=== PATIENT | female | born 1970 | race Caucasian/White ===

== ENCOUNTER 2016-06-15 19:25 | Emergency (ER) | payer OTHER ==
[2016-06-15 22:24] LABS: BASOPHIL 0.2 % (0-2); EOSINOPHIL 0.7 % (0-5); HGB 17.4 g/dl (12.5-16.0); LYMPHOCYTE 6.4 % (15-48); MCH 29.4 pg (25.0-31.0); MCHC 34.1 g/dL (32.0-36.0); MCV 86.1 fL (78.0-100.0); MONOCYTE 2.9 % (0-12); MPV 11.1 fL (6.0-9.5); NEUTROPHIL 89.8 % (41-80); PLT 365 K/uL (150-400); RBC 5.92 M/uL (4.20-5.40); RDW 12.5 % (11.5-14.0)
[2016-06-15 22:26] LABS: BILIRUBIN NEGATIVE (NEGATIVE); BLOOD TRACE-INTACT Ery/uL (NEGATIVE); CLARITY SLIGHTLY HAZY (CLEAR); COLOR YELLOW (YELLOW); GLUCOSE (U) NORMAL (NORMAL); KETONE (U) NEGATIVE (NEGATIVE); LEUKOCYTES NEGATIVE Leu/uL (NEGATIVE); NITRITE NEGATIVE (NEGATIVE); PROTEIN NEGATIVE (NEGATIVE); SPECIFIC GRAVITY >=1.030 (1.001-1.030); UROBILINOGEN 0.2 mg/dL (0.2-1.0); pH 5.5 (5.0-9.0)
[2016-06-15 22:28] LABS: INR 0.9 (0.9-1.2); PROTHROMBIN TIME 11.8 SECONDS (11.7-14.0); PTT 27.6 SECONDS (23.2-31.4)
[2016-06-15 22:32] LABS: BACTERIA 1+; CALCIUM OXALATE CRYSTALS TRACE; MUCOUS TRACE; SQUAMOUS EPITHELIAL CELLS 20-50
[2016-06-15 22:33] LABS: BARBITURATES NEGATIVE (NEGATIVE); BENZODIAZEPINES NEGATIVE (NEGATIVE); COCAINE NEGATIVE (NEGATIVE); METHADONE NEGATIVE (NEGATIVE); TRICYCLIC ANTIDEPRESSANT NEGATIVE (NEGATIVE)
[2016-06-15 22:33] LABS: ALBUMIN 5.4 g/dL (3.5-5.0); BILIRUBIN - TOTAL 0.6 mg/dL (0.1-1.0); CREATININE 0.7 mg/dL (0.5-1.0); GLOBULIN (CALCULATION) 3.2 g/dL (2.2-4.2); POTASSIUM 3.7 mmol/L (3.5-5.1); TOTAL PROTEIN 8.6 g/dL (6.4-8.3)
[2016-06-15 22:34] LABS: AMPHETAMINES POSITIVE (NEGATIVE); MARIJUANA (THC) POSITIVE (NEGATIVE)
== END 2016-06-15 23:20 | disposition left against medical advice (07) ==
LOC: FER 19:25
PROVIDERS: Internal Medicine
DX: R10.9 Unspecified abdominal pain (principal); Z76.5 Malingerer [conscious simulation]
CPT/HCPCS: 36415; 80053; 80305; 81001; 83690; 85025; 85610; 85730; J1170; J2270; J2405